=== PATIENT | male | born 1995 | race Caucasian/White ===

== ENCOUNTER 2020-08-13 21:15 | Emergency (ER) | payer SELFPAY ==
[~2020-08-13] VITALS: Ht 185.4 cm; Wt 109.1 kg
[2020-08-13] MEDS ORDERED: LIDOCAINE 2% VISCOUS 15 ML SOLUTION UDCUP ONE (21:42)
[2020-08-13 21:59] VITALS: BP 149/84
== END 2020-08-13 22:41 | disposition home or self-care (01) ==
LOC: EMS 21:17
DX: T16.2XXA Foreign body in left ear, initial encounter (principal); W45.8XXA Other foreign body or object entering through skin, initial encounter; Y93.89 Activity, other specified; Y92.89 Other specified places as the place of occurrence of the external cause; Y99.8 Other external cause status
CPT/HCPCS: 99282; Z7502; Z7610